=== PATIENT | female | born 1990 ===

== ENCOUNTER 2017-10-16 11:16 | Emergency (ER) | payer OTHER ==
[2017-10-16 11:28] VITALS: O2SAT 99
--- NOTE | 2017-10-16 11:32 | ED PDOC ---
HPI: Female Pain Time Seen by Provider: 10/16/17 11:32 Chief Complaint (Nursing): Abdominal Pain Chief Complaint (Provider): with abd pain History Per: Patient Additional Complaint(s): 26 year old female (1 miscarriage), currently 9 weeks presents with abdominal pain for 4 days. Patient had a pelvic exam done a few days ago at OBs office and since then has had cramping pain with no bleeding. She called her OB today and was instructed to come to ED. No associated fever or chills, no dysuria, no nausea or vomiting. OB: Dr. Alegria Past Medical History Reviewed: Historical Data, Nursing Documentation, Vital Signs Vital Signs: Last Vital Signs Temp 98.2 F 10/16/17 11:26 Pulse 84 10/16/17 11:26 Resp 16 10/16/17 11:26 BP 125/74 10/16/17 11:26 Pulse Ox 99 10/16/17 11:26 - Medical History PMH: No Chronic Diseases - Surgical History Surgical History: No Surg Hx - Family History Family History: States: No Known Family Hx - Living Arrangements Living Arrangements: With Family - Social History Current smoker - smoking cessation education provided: No Alcohol: None Drugs: Denies - Allergies Allergies/Adverse Reactions: Allergies Allergy/AdvReac Type Severity Reaction Status Date / Time ibuprofen Allergy SHORTNESS Verified 10/16/17 11:26 OF BREATH peanut Allergy SHORTNESS Verified 10/16/17 11:26 OF BREATH shellfish derived Allergy SHORTNESS Verified 10/16/17 11:26 OF BREATH Review of Systems ROS Statement: Except As Marked, All Systems Reviewed And Found Negative Constitutional: Negative for: Fever Genitourinary Female: Positive for: Pelvic Pain. Negative for: Dysuria, Frequency, Incontinence, Hematuria, Vaginal Discharge, Vaginal Bleeding Physical Exam - Reviewed Nursing Documentation Reviewed: Yes Vital Signs Reviewed: Yes - Physical Exam Appears: Positive for: Well, Non-toxic, No Acute Distress Skin: Positive for: Normal Color. Negative for: Rash Cardiovascular/Chest: Positive for: Regular Rate, Rhythm Respiratory: Positive for: Normal Breath Sounds Gastrointestinal/Abdominal: Positive for: Soft. Negative for: Tenderness, Distended, Guarding, Rebound Neurologic/Psych: Positive for: Alert, Oriented - Laboratory Results Result Diagrams: 10/16/17 12:43 10/16/17 12:43 Urine POC: Positive Urine dip results: Negative for: Leukocyte Esterase, Blood, Nitrate, Ketones, Glucose, Bilirubin, Protein - ECG O2 Sat by Pulse Oximetry: 99 Pulse Ox Interpretation: Normal - Other Rad OB US X-Ray: Read By Radiologist X-Ray Interpretation: see below Medical Decision Making Medical Decision Makin-year-old female, currently with abdominal pain Plan: CBC CMP Beta OB US Urine dip US: IMPRESSION: Single viable intrauterine gestation with average ultrasound age of 9 weeks. heart rate 159 beats per minute. Patient aware of all diagnostic testing results. All questions answered. Patient was advised to follow-up with OB in 2-3 days. Disposition - Clinical Impression Clinical Impression: Abdominal pain during - Patient ED Disposition Is Patient to be Admitted: No Counseled Patient/Family Regarding: Studies Performed, Diagnosis, Need For Followup - Disposition Referrals: Jennifer Alegria MD [Staff Provider] - Disposition: Routine/Home Disposition Time: 15:29 Condition: STABLE Additional Instructions: Tylenol as needed for pain. We'll up in 2-3 days with her OB or return any time if acutely worse. Instructions: Abdominal Pain in (ED) Forms: [employer] (Azerbaijani) Results - Lab Results Lab Results: 10/16/17 10/16/17 12:43 12:43 WBC 9.2 RBC 4.26 Hgb 12.7 Hct 37.7 MCV 88.6 MCH 29.7 MCHC 33.5 RDW 13.7 Plt Count 226 MPV 7.9 Neut % (Auto) 63.4 Lymph % (Auto) 28.7 Ector % (Auto) 6.3 Eos % (Auto) 1.3 Baso % (Auto) 0.3 Neut # 5.8 Lymph # 2.7 Ector # 0.6 Eos # 0.1 Baso # 0.0 Sodium 139 Potassium 3.7 Chloride 101 Carbon Dioxide 27 Anion Gap 15 BUN 10 Creatinine 0.7 Est GFR ( Amer) > 60 Est GFR (Non-Af Amer) > 60 Random Glucose 80 Calcium 9.6 Total Bilirubin 0.3 AST 28 ALT 44 Alkaline Phosphatase 67 Total Protein 7.7 Albumin 4.1 Globulin 3.6 Albumin/Globulin Ratio 1.1 Beta HCG, Quant [id number]
[2017-10-16 13:13] LABS: ALB/GLOB RATIO 1.1 (1.0-2.1); ALBUMIN 4.1 g/dL (3.5-5.0); ALT/SGPT 44 U/L (9-52); AST/SGOT 28 U/L (14-36); BLOOD UREA NITROGEN 10 mg/dl (7-17); CALCIUM 9.6 mg/dL (8.4-10.2); GFR AFRICAN-AMERICAN > 60; GFR NON-AFRICAN AMERICAN > 60
[2017-10-16 13:14] LABS: BASO % 0.3 % (0.0-2.0); EOS # 0.1 K/uL (0.0-0.7); EOS % 1.3 % (0.0-4.0); HEMOGLOBIN 12.7 g/dL (12.0-16.0); LYMPH # 2.7 K/uL (1.0-4.3); LYMPH % 28.7 % (20.0-40.0); MEAN CELL VOLUME 88.6 fl (81.0-99.0); MEAN CORPUSCULAR HEMOGLOBIN 29.7 pg (27.0-31.0); MEAN CORPUSCULAR HGB CONC 33.5 g/dL (33.0-37.0); MEAN PLATELET VOLUME 7.9 fl (7.2-11.7); MONO # 0.6 K/uL (0.0-0.8); MONO % 6.3 % (0.0-10.0); NEUT # 5.8 K/uL (1.8-7.0); NEUT % 63.4 % (50.0-75.0); RBC 4.26 Mil/uL (3.80-5.20); RED CELL DISTRIBUTION WIDTH 13.7 % (11.5-14.5); WHITE BLOOD COUNT 9.2 K/uL (4.8-10.8)
--- NOTE | 2017-10-16 14:02 | US ---
PROCEDURE: OB Pelvic Ultrasound HISTORY: 9 weeks with abd pain COMPARISON: None available. FINDINGS: UTERUS: Gestational sac: Single intrauterine gestation. Measures 3.7 centimeter compatible with estimated gestational age of 8 weeks, 6 days. Yolk sac: Measures 0.3 centimeter. pole: [place]-rump length measures 2.4 centimeter compatible with estimated gestational age of 9 weeks, 1 day. Heart rate: 159 bpm. age (Ultrasound estimated): 9 weeks Ana-gestational hemorrhage: None. Date of delivery (Ultrasound estimated) : 05/21/2018 Uterus measures 8.7 x 5.2 x 6.9 cm. Retroverted. Normal in size and appearance. CERVIX: Long and closed. No cervical abnormality seen. RIGHT OVARY: Measures 3.4 x 2.3 x 3.1 cm. No mass lesion. Normal flow. LEFT OVARY: Measures 2.0 x 1.0 x 1.2 cm. No solid mass. Normal flow. FREE FLUID: Trace free-fluid. OTHER FINDINGS: None. IMPRESSION: Single viable intrauterine gestation with average ultrasound age of 9 weeks. heart rate 159 beats per minute.
[2017-10-16 15:35] VITALS: BP 116/70; PULSE 70; RESP 18; TEMP 98
== END 2017-10-16 15:35 | disposition home or self-care (01) ==
LOC: H.ER 11:16
DX: O26.891 Other specified pregnancy related conditions, first trimester (principal); Z3A.09 9 weeks gestation of pregnancy

== ENCOUNTER 2018-02-19 02:51 | Emergency (ER) | payer OTHER ==
[2018-02-19 03:25] VITALS: BMI 30.9
[2018-02-19 04:11] LABS: BASO % 0.2 % (0.0-2.0); EOS # 0.1 K/uL (0.0-0.7); EOS % 1.3 % (0.0-4.0); HEMOGLOBIN 11.1 g/dL (12.0-16.0); LYMPH # 2.2 K/uL (1.0-4.3); LYMPH % 20.9 % (20.0-40.0); MEAN CELL VOLUME 91.2 fl (81.0-99.0); MEAN CORPUSCULAR HEMOGLOBIN 31.3 pg (27.0-31.0); MEAN CORPUSCULAR HGB CONC 34.3 g/dL (33.0-37.0); MEAN PLATELET VOLUME 7.5 fl (7.2-11.7); MONO # 0.8 K/uL (0.0-0.8); MONO % 7.3 % (0.0-10.0); NEUT # 7.3 K/uL (1.8-7.0); NEUT % 70.3 % (50.0-75.0); NRBC % 0.1 % (0.0-0.0); RBC 3.54 Mil/uL (3.80-5.20); RED CELL DISTRIBUTION WIDTH 13.8 % (11.5-14.5); WHITE BLOOD COUNT 10.4 K/uL (4.8-10.8)
[2018-02-19 04:21] LABS: URINE BACTERIA OCC (<OCC); URINE BILIRUBIN NEGATIVE (NEGATIVE); URINE BLOOD NEGATIVE (NEGATIVE); URINE CLARITY CLEAR (Clear); URINE COLOR STRAW (YELLOW); URINE GLUCOSE (UA) NEG (Normal); URINE HYALINE CAST 0-2 /hpf (0-2); URINE LEUKOCYTE ESTERASE NEG Leu/uL (Negative); URINE PROTEIN NEGATIVE (NEGATIVE); URINE UROBILINOGEN 0.2-1.0 mg/dL (0.2-1.0)
--- NOTE | 2018-02-19 08:00 | OBHP ---
Datetime: 02/19/2018 07:47 IP Adm Impression: , intrauterine ; No Active Labor IP Chief Complaint Other: hx of partial previa by early sono IP Admit Plan: Observation/Evaluation Admit Comment, IP Provider: CBC and u/a ordered and a sono for placental location and CLM Extremities - PN: Normal Abdomen - PN: Abnormal Back - PN: Normal Breast - PN: Normal Lungs - PN: Normal Heart - PN: Normal Thyroid - PN: Normal Neurologic - PN: Normal HEENT - PN: Normal General - PN: Normal FHR - Baseline A Provider: 150's Membranes, Provider: Intact Contraction Comments Provider: none Comments, ACOG Physical Exam: Abd soft NT gravid NT SVE no active bleeding Ext no calf tenderness Gestation - Est Wks by US: 27 wks Pool Provider: Negative EGA AdmitDate IP: 27.1 IP Chief Complaint: Vaginal bleeding NICHD Decel Fetus A IP Provider: None Dilatation, Provider: closed Effacement, Provider: none Genitourinary Exam: Normal DTRs - PN: Normal
--- NOTE | 2018-02-19 09:23 | US ---
PROCEDURE: OB Pelvic Ultrasound, limited HISTORY: cervical length LMP: 08/13/2017, compatible with estimated gestational age of 27 weeks, 1 day COMPARISON: None available. FINDINGS: UTERUS: Placenta: Posterior, greater than 2 cm from cervix Presentation: Cephalic heart rate 143 beats per minute CERVIX: Measures 4.9 cm. Long and closed. No cervical abnormality seen. IMPRESSION: Limited pelvic ultrasound for cervical length and placental location. Posterior placenta, greater than 2 cm from cervix. Cervix long and closed.
[2018-02-19 14:06] VITALS: BP 92/63; PULSE 97; RESP 17; TEMP 98.4
== END 2018-02-19 09:45 | disposition home or self-care (01) ==
LOC: H.EROB2 02:51
DX: O09.892 Supervision of other high risk pregnancies, second trimester (principal); Z87.59 Personal history of other complications of pregnancy, childbirth and the puerperium

== ENCOUNTER 2018-04-18 19:43 | Emergency (ER) | payer OTHER ==
[2018-04-18] MEDS: Lactated Ringer's 1,000 ML IV SCH ×2 (21:40→22:40)
[2018-04-18 22:11] LABS: SQUAMOUS EPITHIAL < 1 /hpf (0-5); URINE BACTERIA MOD (<OCC); URINE BILIRUBIN NEGATIVE (NEGATIVE); URINE BLOOD NEGATIVE (NEGATIVE); URINE CLARITY SLIGHTY-CLOUDY (Clear); URINE COLOR YELLOW (YELLOW); URINE GLUCOSE (UA) NEG (Normal); URINE LEUKOCYTE ESTERASE NEG Leu/uL (Negative); URINE PROTEIN NEGATIVE (NEGATIVE); URINE UROBILINOGEN 0.2-1.0 mg/dL (0.2-1.0)
[2018-04-18] MEDS ORDERED: Lactated Ringer's 1,000 ML IV SCH (22:15)
--- NOTE | 2018-04-18 23:05 | OBHP ---
Datetime: 04/18/2018 21:26 IP Adm Impression: , intrauterine ; No Active Labor; Intact Membranes IP Admit Plan: Observation/Evaluation Admit Comment, IP Provider: Pt is a 35.2wk with MONICA 05/20/18 based on patients recollection of L MP 08/13/18 and 1st U/S done 09/14. Patient is here for a constant mid dull lower back pain that star maximo at 2 in the afternoon it radiates to the right and left lower abdomen, patient also has a cold wi th congestion for 2 days. Patient denies vaginal bleeding, contractions, or LOF. Patient states ther e is good movements. Patient complains of constipation. Denies dizzines, headache, blurry visio n, NVD, CP, SOB, buring with urination. Patient sees Dr. Anderson. 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 PGY-1 Patient seen and discussed with Dr. Mily ALEJANDRO hospitalist on-call...Pt seen andexamied with PGY1, Agree with note. Spoke to PMD...will hydra te with IVF and observe...check UA- chart rev'd Extremities - PN: Normal Abdomen - PN: Normal Lungs - PN: Normal Heart - PN: Normal General - PN: Normal Presentation-Admit: Vertex FHR - Baseline A Provider: 150 Membranes, Provider: Intact Contraction Comments Provider: 4-7m Pool Provider: Negative IP Hx Assessment: The History has been Reviewed and is Current EGA AdmitDate IP: 35.3 Vital Signs Provider: Reviewed IP Chief Complaint: Uterine contractions; Illness; Maternal discomfort NICHD Variability Prov Fetus A: Moderate 6-25bpm NICHD Accel Fetus A IP Provider: 15X15 FHR Category Provider Fetus A: Category I NICHD Decel Fetus A IP Provider: None Dilatation, Provider: 0 Effacement, Provider: long Station, Provider: [facility]
--- NOTE | 2018-04-18 23:17 | OBHP ---
Datetime: 04/18/2018 23:14 Admit Comment, IP Provider: Spoke to Dr Anderson...UA rev'd...will give Ampicillin q6h and betamethas one q12h
[2018-04-18] MEDS: AMPicillin 2 GM in Sodium Chloride 0.9% 100 ML IVPB SCH (23:51)
[2018-04-18] MEDS: Betamethasone Soluspan 30 mg/5mL Inj Susp IM SCH (23:53)
[2018-04-19] MEDS: AMPicillin 2 GM in Sodium Chloride 0.9% 100 ML IVPB SCH ×2 (06:47→12:08)
--- NOTE | 2018-04-19 08:51 | OBADHP ---
Datetime: 04/19/2018 08:41 Admit Comment, IP Provider: came in last night with low and back pains and found with UC IV hydratio n started and steroids started U/a possible UTI so IV antibiotics started Pt was re-examined this am no cervical changes noted will continue present management and re-evaluate after steroids Pt explaine d the situation and agreed Extremities - PN: Normal Abdomen - PN: Abnormal Breast - PN: Normal Lungs - PN: Normal Heart - PN: Normal Thyroid - PN: Normal Neurologic - PN: Normal HEENT - PN: Normal General - PN: Normal FHR - Baseline A Provider: 140/150 Membranes, Provider: Intact Contraction Comments Provider: 3min Comments, ACOG Physical Exam: Abd gravid NT fundus at 34 cm Ext no calf tenderness Pool Provider: Negative IP Hx Assessment: The History has been Reviewed and is Current IP Chief Complaint: Uterine contractions NICHD Variability Prov Fetus A: Moderate 6-25bpm NICHD Accel Fetus A IP Provider: 10X10 NICHD Decel Fetus A IP Provider: None Dilatation, Provider: closed Effacement, Provider: none Genitourinary Exam: Normal EGA AdmitDate IP: 35.4 IP Adm Impression: , intrauterine IP Admit Plan: Initiate labor protocol Datetime: 04/18/2018 21:26 Presentation-Admit: Vertex Vital Signs Provider: Reviewed FHR Category Provider Fetus A: Category I Station, Provider: high Datetime: 02/19/2018 07:47 IP Chief Complaint Other: hx of partial previa by early sono Back - PN: Normal Gestation - Est Wks by US: 27 wks DTRs - PN: Normal
[2018-04-19] MEDS ORDERED: Lactated Ringer's 1,000 ML IV SCH (09:00)
[2018-04-19] MEDS: Betamethasone Soluspan 30 mg/5mL Inj Susp IM SCH (12:11)
[2018-04-19 17:25] VITALS: BP 104/52; PULSE 106; RESP 20; TEMP 98.2; O2SAT 98
== END 2018-04-19 12:15 | disposition home or self-care (01) ==
LOC: H.EROB2 19:43 → H.L&D 04-19 08:46 → H.EROB2 04-19 12:15
DX: O26.93 Pregnancy related conditions, unspecified, third trimester (principal); R10.2 Pelvic and perineal pain; Z3A.35 35 weeks gestation of pregnancy; M54.5 Low back pain; K59.00 Constipation, unspecified
CPT/HCPCS: 81003; 96360; 96365; 96372; 99283; J0290; J0702; J7120

== ENCOUNTER 2018-04-20 04:02 | Emergency (ER) | payer OTHER ==
[2018-04-20 11:19] VITALS: BP 115/72; PULSE 100
== END 2018-04-20 07:00 | disposition home or self-care (01) ==
LOC: H.EROB2 04:02
DX: O26.93 Pregnancy related conditions, unspecified, third trimester (principal); R51 Headache; H53.9 Unspecified visual disturbance; Z3A.35 35 weeks gestation of pregnancy; O09.299 Supervision of pregnancy with other poor reproductive or obstetric history, unspecified trimester

== ENCOUNTER 2018-05-03 09:32 | Inpatient (IN) | payer OTHER ==
[2018-05-03 10:18] VITALS: BMI 37.6
[2018-05-03] MEDS ORDERED: Lactated Ringer's 1,000 ML IV ONE (10:18)
[2018-05-03] MEDS ORDERED: Oxytocin 30 UNIT 30 UNITS/500 ML BAG IV ONE (10:18)
[2018-05-03] MEDS ORDERED: Lactated Ringer's 1,000 ML IV SCH (10:30)
[2018-05-03 11:05] LABS: BASO % 0.3 % (0.0-2.0); EOS # 0.1 K/uL (0.0-0.7); EOS % 1.1 % (0.0-4.0); HEMOGLOBIN 12.6 g/dL (12.0-16.0); LYMPH % 20.6 % (20.0-40.0); MEAN CELL VOLUME 90.6 fl (81.0-99.0); MEAN CORPUSCULAR HEMOGLOBIN 30.5 pg (27.0-31.0); MEAN CORPUSCULAR HGB CONC 33.7 g/dL (33.0-37.0); MEAN PLATELET VOLUME 8.4 fl (7.2-11.7); MONO # 0.5 K/uL (0.0-0.8); MONO % 5.4 % (0.0-10.0); NEUT # 7.1 K/uL (1.8-7.0); NEUT % 72.6 % (50.0-75.0); NRBC % 0.1 % (0.0-0.0); RBC 4.13 Mil/uL (3.80-5.20); WHITE BLOOD COUNT 9.8 K/uL (4.8-10.8)
[2018-05-03] MEDS ORDERED: cefOXitin Sodium 1 GM in Sodium Chloride 0.9% 100 ML IVPB ONE (11:19)
[2018-05-03] MEDS ORDERED: cefOXitin IV 1 gm in Dextrose 1 GM/50 ML BAG IVPB ONE (11:30)
[2018-05-03] MEDS ORDERED: OXYTOCIN/0.9 % NS 20 UNIT/1,000 ML BAG IV SCH ×2 (11:30→18:32)
--- NOTE | 2018-05-03 16:42 | OBADHP ---
Datetime: 05/03/2018 11:20 IP Chief Complaint Other: possible macrosomia IP Adm Impression Other: labor with cervical changes Admit Comment, IP Provider: Pt is a with MONICA 05/20/18 based on LMP 08/13/18 and 1st U/S done 1 11/15. Patient presents for admission for elective primary cd. . Patient was seen by Dr. Anderson c/o of pelvic pressure, PE showed pt to be 2-3cm. She declines labor. Treated for uti and uri completed meds last wk. OBHx: Amniocentesis 18 wks, Bleeding 1st TM which resolved, history of low lying placenta previa w hich resolved at 28wks PmHx: seasonal asthma Meds: Prenatals Allergies: motrin causes h/a; states she is NOT allergic to ibuprofen and took it after knee surge ry FOOD ALLEFGY: peanuts, shellfish Family Hx: Mom- Lupus,DM, HTN Social Hx: Denies tobacco, ethanol, or illictdrug use Surg Hx: 2 Knee surgeris (2009,2013) groin cyst removed 2012 I: 37.4wk P: admit Pelvic Type - PN: Not Done Extremities - PN: Normal Abdomen - PN: Normal Lungs - PN: Normal Heart - PN: Normal Neurologic - PN: Normal HEENT - PN: Normal General - PN: Normal FHR - Baseline A Provider: 160 Membranes, Provider: Intact Contraction Comments Provider: 2-6 min Gestation - Est Wks by US: 37 wks IP Hx Assessment: The History has been Reviewed and is Current Vital Signs Provider: Within Normal Limits IP Chief Complaint: Maternal discomfort NICHD Variability Prov Fetus A: Minimal - Undetectable to <5bpm NICHD Accel Fetus A IP Provider: 15X15 NICHD Decel Fetus A IP Provider: None Dilatation, Provider: 2-3 Effacement, Provider: 50 DTRs - PN: Normal EGA AdmitDate IP: 37.4 IP Adm Impression: Term, intrauterine ; Active labor IP Admit Plan: Admit to unit; Initiate labor protocol Datetime: 04/20/2018 05:07 FHR Category Provider Fetus A: Category I
[2018-05-03] MEDS ORDERED: ePHEDrine 50 mg/ml Inj ONE (17:15)
[2018-05-03] MEDS ORDERED: Morphine 1 mg/ml preservative-free Inj(Duramorph) ONE (17:15)
[2018-05-03] MEDS ORDERED: Oxycodone/Acetaminophen 5/325 mg Tab PO PRN (18:26)
[2018-05-03] MEDS ORDERED: cefOXitin IV 1 gm in Dextrose 1 GM/50 ML BAG IVPB SCH (18:30)
--- NOTE | 2018-05-03 18:37 | OBDS ---
DELIVERY PERSONNEL Delivery Doctor: Jonel Anderson MD Scrub Nurse: Samantha Madera Proof Carrier: Amarilys Madden RN Anesthesiologist: Dr. Degroot MATERNAL INFORMATION Delivery Anesthesia: Spinal Medications in Delivery: Pitocin 30 units Estimated Blood Loss (ml): 800 Placenta Cultured: No Maternal Complications: None Provider Comments: see dictated surgeons note LABOR SUMMARY EDC: 05/20/2018 00:00 No. Babies in Womb: 1 Attempted: No LABOR INFORMATION Reason for Induction: Not Applicable Onset of Labor: 05/03/2018 05:00 Oxytocin: N/A Group B Beta Strep: Negative Steroids Given: None Reason Steroids Not Administered: Not Applicable MEMBRANES Membranes Rupture Method: Spontaneous Amniotic Fluid Color: Clear Amniotic Fluid Amount: Moderate Amniotic Fluid Odor: Normal STAGES OF LABOR Stage 3 hrs: 0 Stage 3 min: 1 Total Time in Labor hrs: 12 Total Time in Labor min: 46 VAGINAL DELIVERY Episiotomy: None Laceration Extension: N/A Laceration Type: None Laceration Repair: Not Applicable Sponge Count Correct: Yes Sharps Count Correct: Yes Count Comment: count corect x3 CSECTION DELIVERY Primary Indication: Other Other Primary Indication: elective Secondary Indication: Other Other Secondary Indication: Macrosomia CSection Urgency: Elective CSection Incidence: Primary Labor: Labor Elective: Elective CSection Incision: Lower Uterine Transverse Uterine Closure: Double-layer closure BABY A INFORMATION Infant Delivery Date/Time: 05/03/2018 17:45 Method of Delivery: Born in Route : No : N/A Forceps: N/A Vacuum Extraction: N/A Shoulder Dystocia : No SHOULDER DYSTOCIA BABY A Infant Delivery Date/Time: 05/03/2018 17:45 PRESENTATION/POSITION BABY A Presentation: Cephalic Cephalic Presentation: Vertex Breech Presentation: N/A PLACENTA INFORMATION BABY A Placenta Delivery Time : 05/03/2018 17:46 Placenta Method of Delivery: Spontaneous Placenta Status: Delivered SCORES BABY A Heart Rate 1 min: >100 bpm Resp Effort 1 min: Good Cry Reflex Irritability 1 min: Cough or Sneeze or Pulls Away Muscle Tone 1 min: Active Motion Color 1 min: Body [place], Extremities Blue Resuscitation Effort 1 min: Tactile Stimulation SCORE 1 MIN: 9 Heart Rate 5 min: >100 bpm Resp Effort 5 min: Good Cry Reflex Irritability 5 min: Cough or Sneeze or Pulls Away Muscle Tone 5 min: Active Motion Color 5 min: Body [place], Extremities Blue Resuscitation Effort 5 min: Tactile Stimulation SCORE 5 MIN: 9 INFANT INFORMATION BABY A Gestational Age at Delivery: 37.0 Gestational Status: Term Outcome : Liveborn Condition : Stable Infant Sex: Male CORD INFORMATION BABY A No. Cord Vessels: 3 Nuchal Cord : N/A Cord Blood Taken: Yes Banking/Donate Info: [employer] - [id number] ASSESSMENT BABY A Infant Complications: None Physical Findings at Delivery: Within Normal Limits Infant Respirations: Appears Normal Continuum Of Care Manager/ALS Called : No Care By: Dr. Tilley/Cecelia Transferred To: Remains with Mother
[2018-05-03] MEDS ORDERED: DiphenhydrAMINE 50 mg/ml Inj IVP PRN ×2 (18:58→23:44)
[2018-05-04] MEDS: cefOXitin IV 1 gm in Dextrose 1 GM/50 ML BAG IVPB SCH ×2 (01:15→10:14)
[2018-05-04 06:17] LABS: HEMOGLOBIN 11.1 g/dL (12.0-16.0); MEAN CELL VOLUME 90.6 fl (81.0-99.0); MEAN CORPUSCULAR HGB CONC 33.1 g/dL (33.0-37.0); RBC 3.69 Mil/uL (3.80-5.20); RED CELL DISTRIBUTION WIDTH 14.9 % (11.5-14.5)
[2018-05-04] MEDS: Multivitamin With Minerals Tab PO SCH (08:37)
[2018-05-04] MEDS ORDERED: Multivitamin With Minerals Tab PO SCH (09:00)
--- NOTE | 2018-05-04 10:09 | OBPPN ---
Datetime: 05/04/2018 10:05 PP Pain Prov: Within normal limits PP Pain Prov comment: Denies SOB, chest or leg pains PP Nausea Prov: Denies PP Flatus Prov: No PP BM Prov: No PP Nausea Prov comment: no C/F PP Breasts Prov: Normal PP Lungs Prov: Normal PP Abdomen/Uterus Prov: Abnormal PP Lochia Prov: Normal PP Vulva/Perineum Prov: Normal PP CVA Tenderness Prov: Normal PP Extremities Prov: Normal PP C/S Incision Prov: Normal PP Progress Prov: Normal PP Comments Phys Exam Prov: breast not engorged NT, Abd soft ND, fundus firm below umb Dressing inta ct Ext no calf tnederness PP Impression Prov: Normal progression PP Plan Prov: Continue present management PP Progress Note Prov: CBC this am stable, increase diet as tolerated, OOB and ambulation Continue P O and pp care IP PP Procedures: None Vital Signs Provider PP: Reviewed
[2018-05-04] MEDS: Oxycodone/Acetaminophen 5/325 mg Tab PO PRN ×2 (13:51→20:53)
[2018-05-04] MEDS ORDERED: cefOXitin IV 1 gm in Dextrose 1 GM/50 ML BAG IVPB SCH (17:00)
[2018-05-05] MEDS: Oxycodone/Acetaminophen 5/325 mg Tab PO PRN ×2 (03:58→11:57)
--- NOTE | 2018-05-05 08:53 | OBPPN ---
Datetime: 05/05/2018 08:48 PP Pain Prov: Within normal limits PP Pain Prov comment: no SOB chest or leg pains PP Nausea Prov: Denies PP Flatus Prov: Yes PP BM Prov: No PP Nausea Prov comment: voiding well PP Breasts Prov: Normal PP Lungs Prov: Normal PP Abdomen/Uterus Prov: Abnormal PP Lochia Prov: Normal PP Vulva/Perineum Prov: Normal PP CVA Tenderness Prov: Normal PP Extremities Prov: Normal PP C/S Incision Prov: Normal PP Progress Prov: Normal PP Comments Phys Exam Prov: breast not engorged NT; Abd soft ND, fundus firm below the umb Incision clean and dry no active bleeding or suppt steady strips in place Ext no calf tenderness PP Impression Prov: Normal progression PP Plan Prov: Continue present management PP Progress Note Prov: OOB and ambulation Dulculax suppt this am Continue PO care IP PP Procedures: None Vital Signs Provider PP: Reviewed
[2018-05-05] MEDS: Multivitamin With Minerals Tab PO SCH (10:25)
[2018-05-06] MEDS: Oxycodone/Acetaminophen 5/325 mg Tab PO PRN (03:06)
--- NOTE | 2018-05-06 08:36 | OBPPN ---
Datetime: 05/06/2018 08:33 PP Pain Prov: Within normal limits PP Pain Prov comment: No SOB, chest or leg pains PP Nausea Prov: Denies PP Flatus Prov: Yes PP BM Prov: Yes PP Breasts Prov: Normal PP Lungs Prov: Normal PP Abdomen/Uterus Prov: Abnormal PP Lochia Prov: Normal PP Vulva/Perineum Prov: Normal PP CVA Tenderness Prov: Normal PP Extremities Prov: Normal PP C/S Incision Prov: Normal PP Progress Prov: Normal PP Comments Phys Exam Prov: breast NT, not engorged; Abd soft nd, fundus firm below the umb Incision clean and dry no active bleeding or sign of infection PP Impression Prov: Normal progression PP Plan Prov: Continue present management PP Progress Note Prov: Continue PO and PP care Pain management IP PP Procedures: None Vital Signs Provider PP: Reviewed
[2018-05-06] MEDS: Multivitamin With Minerals Tab PO SCH (08:48)
--- NOTE | 2018-05-06 17:55 | OBDCSUM ---
Datetime: 05/06/2018 17:52 Discharged to, Provider: Home Follow up at, Provider: Dr Justin Mcgill Instr Activity: Bedrest; May be up to bathroom; May be up for meals; May Shower Disch Instr Diet: Regular Discharge Instructions, Provider: Routine instructions given Discharge Diagnosis, Provider: Term Delivered Follow up in weeks, Provider: 1wk Disch Referrals: None Contraception discussed, Prov: Yes Disch Activity Restrictions: No exercising; No lifting; No driving; Minimize walking; Minimize stair -climbing; No sexual activity; Nothing in vagina - [place], tampons, douche Discharge Comment, Provider: rx for Percocet given Instructions given Discharge Diagnosis Prov Other: macrosomia Contraception after Delivery: Undecided Datetime: 05/06/2018 13:10 Discharged to, Provider: Home Follow up at, Provider: Dr. Justin Mcgill Instr Activity: Normal activity; May be up to bathroom; May be up for meals; May Shower Disch Instr Diet: Regular Discharge Time: 05/06/2018 13:30 Follow up in weeks, Provider: in one week Disch Referrals: None Disch Activity Restrictions: No lifting; No sexual activity; Nothing in vagina - [place], tampon s, douche Datetime: 04/20/2018 07:04 Disch Instr Activity: Normal activity; May be up to bathroom; May be up for meals; May Shower
--- NOTE | 2018-05-06 21:03 | OP ---
Copied To: Ryan Anderson MD Attending MD: Ryan Anderson MD PROCEDURE DATE: 05/03/2018 PREOPERATIVE DIAGNOSES: 1. at term. 2. Early labor with cervical changes. 3. Maternal request. 4. Macrosomia by sonogram. POSTOPERATIVE DIAGNOSES: 1. at term. 2. Early labor with cervical changes. 3. Maternal request. 4. Macrosomia by sonogram. PROCEDURE PERFORMED: Primary low transverse segment section. SURGEON: Ryan Anderson MD TOOL DESIGN ENGINEER: Zurdo Minor DO and Dr. Bowling. Data Center Operator needed in order to position the patient and help in delivering the baby, opening and closure of the abdomen. Dr. Minor was there for the entire duration of the case. ESTIMATED BLOOD LOSS: 800 mL. DRAINS USED: None. REPLACEMENTS USED: None. FINDINGS: 1. Delivered a living baby boy. Baby appears term, but large for gestational age. Baby cried spontaneously. Pediatrist in attendance. score of 9 and 9. 2. Amniotic fluid clear. 3. Placenta complete and intact. 4. Both tubes and ovaries appear grossly within normal limits to inspection bilaterally. 5. Cord blood collection done. DESCRIPTION OF PROCEDURE: Patient was taken to the operating room and placed on the operating table. With administration of spinal anesthesia, the patient was then re-placed in supine position. Castellano catheter was then inserted into the bladder and was draining clear fluid. Venodyne boots were applied to both legs. At this time, abdomen was draped and prepped in the usual sterile manner. Anesthesia tested and found to be well secured. A Pfannenstiel incision was then made using sharp dissection two fingerbreadths above the symphysis pubis. The incision was then extended down to the subcutaneous tissue, also using sharp dissection. At this time, hemostasis obtained by means of electrocoagulation. Following this, we then proceeded to identify the fascia. Fascia was then entered at the midline. Incision of the fascia was then extended laterally on each direction using sharp dissection. Rectus muscle was then identified, was then slid in the midline, exposing the peritoneum. The peritoneal layer was then picked up using two Kandi clamps, retracted superiorly, and then entered using sharp dissection. Incision on the peritoneum was then extended superiorly and inferiorly under direct visualization. The bladder was then identified and was then retracted inferiorly using a Bozrah retractor. The low transverse segment of the uterus was then identified and the visceral peritoneum covering this area was then entered using sharp dissection. Using blunt dissection, a bladder flap was then created and retracted inferiorly using the same Bozrah retractor. Following this, we then proceeded to make an incision on the low transverse segment of the uterus. Upon entering the uterine cavity, clear fluid noted to be present. The incision was then extended laterally on each direction using bandage scissors. Using manual scooping procedure, a living baby boy was then delivered. The baby appears term. The baby cried spontaneously, but it appears large for gestational age. Baby was immediately aspirated using the bulb suction. Umbilicus was then doubly clamped, cut, and the baby handed to the pediatric personnel who was standing by. At this time, samples of cord blood and cord collection were then performed without any complications. The placenta was then delivered complete and intact. At this time, the uterus was then exteriorized to provide better visualization. The uterine cavity was then thoroughly cleaned using moist lap pads. The uterus massaged and contracted well. Edges of the uterine incision were then secured using multiple T-clamps and the uterine incision was then approximated using 0 Vicryl suture in a continuous interlocking manner. A second layer was also applied using 0 Vicryl suture in a continuous manner. Following this, we then proceeded to note that hemostasis was obtained and appear well secured. The bladder flap was then approximated using 2-0 Vicryl in a continuous manner. Again, hemostasis checked and found to be well secured. Free amniotic fluid and blood evacuated from the pelvic cavity. Pelvic cavity was then irrigated using saline solution and the uterus was then allowed to retract back into its original position. All operative areas checked, hemostatically secured. Both tubes and ovaries appeared grossly within normal limits to inspection bilaterally. At this time, the peritoneum was then closed using 0 Vicryl suture in a continuous manner. Rectus muscle was also closed at the midline using the same 0 Vicryl suture in a continuous manner. At this time, the fascia was then approximated using 1 Vicryl suture in a continuous manner. Fascia was then checked and found to be free of defects. Subcutaneous tissue was then irrigated using saline solution and approximated using several interrupted 2-0 plain sutures. The skin was then approximated using a 3-0 Prolene in a subcuticular fashion. Steri-Strips were then applied. Clear fluid noted to be present in the Castellano bag at this time. Sponge, instrument, and needle counts correct x3. The patient tolerated the procedure well. There were no complications. She was transferred to the recovery room in satisfactory condition. Ryan Anderson MD [facility]
[2018-05-06 23:34] VITALS: BP 120/76; PULSE 91; RESP 18; TEMP 97.7; O2SAT 95
== END 2018-05-06 13:50 | disposition home or self-care (01) | DRG 766 ==
LOC: H.EROB2 09:32 → H.L&D 10:18 → H.OB/GYN 22:57
PROVIDERS: ADMIT Specialist; ATTEND Specialist
PROC: 10D00Z1 Extraction of Products of Conception, Low, Open Approach (ICD-10-PCS; principal; 2018-05-03)
PROC: 4A1HXCZ Monitoring of Products of Conception, Cardiac Rate, External Approach (ICD-10-PCS; 2018-05-03)
DX: O36.60X0 Maternal care for excessive fetal growth, unspecified trimester, not applicable or unspecified (principal); Z37.0 Single live birth; Z82.49 Family history of ischemic heart disease and other diseases of the circulatory system; O99.52 Diseases of the respiratory system complicating childbirth; Z3A.37 37 weeks gestation of pregnancy

== ENCOUNTER 2018-09-10 13:14 | Emergency (ER) | payer OTHER ==
[2018-09-10 13:15] VITALS: BMI 37.6
[2018-09-10 13:31] VITALS: BP 104/72; PULSE 100; RESP 16; TEMP 98.4; O2SAT 97
[2018-09-10] MEDS ORDERED: Sodium Chloride 0.9% 1,000 ML IV STA (13:45)
[2018-09-10 14:32] LABS: BASO % 0.1 % (0.0-2.0); EOS # 0.1 K/uL (0.0-0.7); EOS % 1.2 % (0.0-4.0); HEMOGLOBIN 14.9 g/dL (12.0-16.0); LYMPH # 1.1 K/uL (1.0-4.3); LYMPH % 12.4 % (20.0-40.0); MEAN CELL VOLUME 88.7 fl (81.0-99.0); MEAN CORPUSCULAR HEMOGLOBIN 29.5 pg (27.0-31.0); MEAN CORPUSCULAR HGB CONC 33.2 g/dL (33.0-37.0); MEAN PLATELET VOLUME 8.1 fl (7.2-11.7); MONO # 0.4 K/uL (0.0-0.8); MONO % 4.1 % (0.0-10.0); NEUT # 7.2 K/uL (1.8-7.0); NEUT % 82.2 % (50.0-75.0); RBC 5.04 Mil/uL (3.80-5.20); RED CELL DISTRIBUTION WIDTH 13.9 % (11.5-14.5); WHITE BLOOD COUNT 8.8 K/uL (4.8-10.8)
[2018-09-10 14:46] LABS: ALB/GLOB RATIO 1.2 (1.0-2.1); ALBUMIN 4.7 g/dL (3.5-5.0); ALT/SGPT 21 U/L (9-52); AST/SGOT 27 U/L (14-36); BLOOD UREA NITROGEN 15 mg/dl (7-17); CALCIUM 9.4 mg/dL (8.4-10.2); GFR NON-AFRICAN AMERICAN > 60; LIPASE 42 U/L (23-300)
--- NOTE | 2018-09-10 15:41 | ED PDOC ---
HPI: Abdomen Time Seen by Provider: 09/10/18 14:03 Chief Complaint (Nursing): GI Problem Chief Complaint (Provider): diarrhea/constipation/abdominal pain History Per: Patient (27 y/o female 4 months s/p c sxn here with intermittent crampy abdominal pain initially noted with hard stool and today with watery diarrhea. Denies any vomiting. Notes nausea. No fevers/chills. Is currently breast feeding. Was given mag citrate by pmd last week with improvement.) Past Medical History Reviewed: Historical Data, Nursing Documentation, Vital Signs Vital Signs: Last Vital Signs Temp 98.4 F 09/10/18 13:28 Pulse 100 H 09/10/18 13:28 Resp 16 09/10/18 13:28 BP 104/72 09/10/18 13:28 Pulse Ox 97 09/10/18 13:28 - Medical History PMH: Denies: Depression, Diabetes, HTN - Family History Family History: States: No Known Family Hx - Home Medications Home Medications: Ambulatory Orders Medication Instructions Recorded Vit No.126/Iron/Folic 1 tab PO DAILY MDD 1tab 05/03/18 [Prenavite] Sod Phos,M-B/Na Phos,Di-Ba [Fleet 230 ml RC ONCE PRN #1 enema 09/10/18 Enema Extra] - Allergies Allergies/Adverse Reactions: Allergies Allergy/AdvReac Type Severity Reaction Status Date / Time ibuprofen Allergy SHORTNESS Verified 10/16/17 11:26 OF BREATH peanut Allergy SHORTNESS Verified 10/16/17 11:26 OF BREATH shellfish derived Allergy SHORTNESS Verified 10/16/17 11:26 OF BREATH Review of Systems ROS Statement: Except As Marked, All Systems Reviewed And Found Negative Physical Exam - Reviewed Nursing Documentation Reviewed: Yes Vital Signs Reviewed: Yes - Physical Exam Appears: Positive for: Well, Non-toxic, No Acute Distress Head Exam: Positive for: ATRAUMATIC, NORMAL INSPECTION, NORMOCEPHALIC Skin: Positive for: Normal Color, Warm, DRY Eye Exam: Positive for: EOMI, Normal appearance, PERRL ENT: Positive for: Normal ENT Inspection Neck: Positive for: Normal, Painless ROM Cardiovascular/Chest: Positive for: Regular Rate, Rhythm Respiratory: Positive for: CNT, Normal Breath Sounds Gastrointestinal/Abdominal: Positive for: Normal Exam, Soft Back: Positive for: Normal Inspection Extremity: Positive for: Normal ROM Neurologic/Psych: Positive for: Alert, Oriented - Laboratory Results Result Diagrams: 09/10/18 14:22 09/10/18 14:22 - ECG O2 Sat by Pulse Oximetry: 97 - Progress ED Course And Treament: zofran 4 mg iv ns 1 liter wide open obstructive series: moderate stool noted; no air-fluid levels noted. Disposition - Clinical Impression Clinical Impression: Constipation - Patient ED Disposition Is Patient to be Admitted: No - Disposition Disposition: Routine/Home Disposition Time: 15:50 Condition: FAIR Prescriptions: Sod Phos,M-B/Na Phos,Di-Ba [Fleet Enema Extra] 230 ml RC ONCE PRN #1 enema PRN Reason: Constipation Instructions: Constipation, Adult (DC)
--- NOTE | 2018-09-10 15:49 | RAD ---
Date of service: 09/10/2018 PROCEDURE: Radiographs of the chest and abdomen (obstructive series) HISTORY: ROUTINE COMPARISON: No prior. TECHNIQUE: AP radiograph of the chest, with upright and supine radiographs of the abdomen. FINDINGS: CHEST: Lungs: Clear. Cardiovascular: Normal size heart. No pulmonary vascular congestion. No aortic atherosclerotic calcification present Pleura: No pleural fluid. No pneumothorax. Other findings: None. ABDOMEN AND PELVIS: Bowel: Unremarkable bowel gas pattern. No evidence of mechanical obstruction. Free air: None. Bones: Unremarkable. Other findings: None. IMPRESSION: Unremarkable radiographs of chest and abdomen. No evidence of mechanical bowel obstruction.
== END 2018-09-10 16:08 | disposition home or self-care (01) ==
LOC: H.ER 13:14
DX: K59.00 Constipation, unspecified (principal)
CPT/HCPCS: 74022; 80053; 83690; 85025; 96374; 99283; J2405; J7030